=== PATIENT | female | born 1955 | race Caucasian/White ===

== ENCOUNTER → 2022-12-10 10:02 | Outpatient (CLI) | payer OTHER, SELFPAY ==
--- NOTE | 2022-12-10 | DI.MRI.S_ITS ---
PROCEDURE: MR LUMBAR SPINE WO CON INDICATIONS: Spinal stenosis, lumbar region TECHNIQUE: Noncontrast sagittal T1 spin echo and T2 fast echo, sagittal STIR, and T2 fast spin echo through the lumbar spine. In cases with scoliosis, additional coronal T2 fast spin echo may be performed. COMPARISON: [facility] [place], CR, XR LUMBAR SPINE WITH OBLIQUES PLUS FLEXION EXTENSION, 11/23/2022, 11:15. [facility] Outside Film, RG, SPINE LUMB 2 OR 3VW, 04/19/2018, 15:17. FINDINGS: Image quality: Excellent. Alignment and Curvature: There is normal bony alignment. Bone Marrow: Marrow is of normal overall signal. No acute vertebral body compression fractures. Spinal Cord: Conus medullaris terminates at the T12 level. Visualized cord demonstrates normal signal and size. Paraspinous Soft Tissues: No paravertebral masses. Discs: Scattered minimal to mild disc desiccation is present most notable from L1-2 through L3-4. T12-L1: No disc bulge, spinal stenosis or foraminal narrowing. L1-L2: Minimal disc bulge without spinal stenosis or foraminal narrowing. Prominent ligamentum flavum as well as mild facet hypertrophy is present. Epidural lipomatosis is present. L2-L3: Minimal disc bulge without spinal stenosis. Minimal to mild bilateral foraminal narrowing with facet and ligamentum flavum hypertrophy. Epidural lipomatosis is present. L3-L4: Minimal disc bulge without spinal stenosis. Minimal left foraminal narrowing with facet and ligamentum flavum hypertrophy. L4-L5: Mild disc bulge without spinal stenosis. Minimal bilateral foraminal narrowing with facet and ligamentum flavum hypertrophy.. L5-S1: Mild disc bulge without spinal stenosis. Mild bilateral foraminal narrowing with facet hypertrophy. IMPRESSION: Multilevel disc bulges. Multilevel foraminal narrowing most notable at L2-3, L5-S1 secondary to facet/ligamentum flavum arthropathy. Dictated by: Beverly Person M.D. on 12/12/2022 at 12:16 Approved by: Beverly Person M.D. on 12/12/2022 at 14:04
== END ==
PROVIDERS: PCP Nurse Practitioner Family; Referring Provider Physical Medicine & Rehabilitation Pain Medicine; Visit Provider Physical Medicine & Rehabilitation Pain Medicine
DX: M48.062 Spinal stenosis, lumbar region with neurogenic claudication (principal); M48.07 Spinal stenosis, lumbosacral region; M51.36 Other intervertebral disc degeneration, lumbar region; M51.37 Other intervertebral disc degeneration, lumbosacral region; M47.816 Spondylosis without myelopathy or radiculopathy, lumbar region; M47.817 Spondylosis without myelopathy or radiculopathy, lumbosacral region
CPT/HCPCS: 72148